=== PATIENT | female | born 1980 | race Caucasian/White ===

== ENCOUNTER 2018-07-19 18:25 | Emergency (ER) | payer OTHER ==
[~2018-07-19] VITALS: Ht 157.5 cm; Wt 57.6 kg
[2018-07-19] MEDS ORDERED: ACETAMINOPHEN 325 MG TABLET PO ONE (19:30)
--- NOTE | 2018-07-19 19:38 | PHYS DOC ---
Past History Past Medical History: No Pertinent History Past Surgical History: No Surgical History Alcohol Use: None Drug Use: None Adult General Chief Complaint Chief Complaint: VAGINAL BLEEDING HPI HPI 38-year-old female presents with vaginal bleeding. The [place] She then has had significant bright red bleeding filling 3 pads. She states that she is still having bleeding. She also has some lower abdominal cramping. She has not had an ultrasound. She denies fever, chills. This is her fourth . Her other 3 were uncomplicated except for preeclampsia. Patient has no other complaints. Review of Systems Review of Systems Constitutional: Denies fever or chills [] Eyes: Denies change in visual acuity, redness, or eye pain [] HENT: Denies nasal congestion or sore throat [] Respiratory: Denies cough or shortness of breath [] Cardiovascular: No additional information not addressed in HPI [] GI: Lower abdominal pain[] : Vaginal bleeding[] Musculoskeletal: Denies back pain or joint pain [] Integument: Denies rash or skin lesions [] Neurologic: Denies headache, focal weakness or sensory changes [] Endocrine: Denies polyuria or polydipsia [] All other systems were reviewed and found to be within normal limits, except as documented in this note. Allergies Allergies Allergies Coded Allergies Type Severity Reaction Last Updated Verified No Known Drug Allergies 07/19/18 No Physical Exam Physical Exam Constitutional: Well developed, well nourished, no acute distress, non-toxic appearance. [] HENT: Normocephalic, atraumatic, bilateral external ears normal, oropharynx moist, no oral exudates, nose normal. [] Eyes: PERRLA, EOMI, conjunctiva normal, no discharge. [] Neck: Normal range of motion, no tenderness, supple, no stridor. [] Cardiovascular:Heart rate regular rhythm, no murmur [] Lungs & Thorax: Bilateral breath sounds clear to auscultation [] Abdomen: Bowel sounds normal, soft, no tenderness, no masses, no pulsatile masses. [] Skin: Warm, dry, no erythema, no rash. [] Back: No tenderness, no CVA tenderness. [] Extremities: No tenderness, no cyanosis, no clubbing, ROM intact, no edema. [] Neurologic: Alert and oriented X 3, normal motor function, normal sensory function, no focal deficits noted. [] Psychologic: Affect normal, judgement normal, mood normal. [] Current Patient Data Vital Signs Vital Signs Date Time Temp Pulse Resp B/P (MAP) Pulse Ox O2 Delivery O2 Flow Rate FiO2 07/19/18 18:25 97.8 91 18 100 Room Air EKG EKG [] Radiology/Procedures Radiology/Procedures [] Impressions: Early OB ultrasound History: Vaginal bleeding in early . Positive test. Comparison: None. Technique: Transabdominal imaging was performed for initial evaluation of the pelvis. Endovaginal imaging was performed to evaluate optimally the lower uterine segment and to increase sensitivity for detection of intrauterine . Findings: Transabdominal imaging: Uterus measures 9.5 cm in length. Endometrial thickness is 13 mm. No intrauterine identified transabdominal imaging. Right ovary measures 2.6 cm in maximum dimension. There is without evidence of torsion. Left ovary is not seen. No adnexal masses are appreciated. Endovaginal imaging: Endometrial thickness is 10 mm. No intrauterine is identified. Right ovary measures 2.4 x 1.6 x 1.9 cm. Right ovary demonstrates a few small follicles. Left ovary measures 2.1 x 1.3 x 2.2 cm and demonstrates a few small follicles. Both ovaries are without evidence of torsion. No adnexal masses are seen. Impression: 1. No intrauterine is identified. No correlative beta hCG levels are available at time of interpretation. 2. Most likely etiology is exceedingly early intrauterine . Although there is no positive ultrasound evidence of such, given the lack of identifiable intrauterine , ectopic cannot be excluded. 3. Recommend serial beta hCG levels and pelvic ultrasound as clinically indicated. Electronically signed by: Tesfaye Gill MD (07/19/2018 8:28 PM) [facility] DICTATED AND SIGNED BY: TESFAYE GILL MD DATE: 07/19/182024 CC: REE RESENDIZ DO; PAPO NORWOOD MD Course & Med Decision Making Course & Med Decision Making Pertinent Labs and Imaging studies reviewed. (See chart for details) Your son is not sure if she her . They're conclusion is likely very early . They could not rule out ectopic however. I am waiting for labs at this time. I will advise the patient that she should have repeat hCG in 2 days and consider repeat ultrasound as directed by her [employer]. The patient hCG is 1229. [place]. Given these facts, the bleeding and the ultrasound results, this is likely spontaneous demise. The patient states that her pain is improved since her arrival. She is stable for discharge at this time. [] Dragon Disclaimer Dragon Disclaimer This electronic medical record was generated, in whole or in part, using a voice recognition dictation system. Departure Departure: Referrals: PAPO NORWOOD MD (PCP) REE RESENDIZ DO Jul 19, 2018 19:38
--- NOTE | 2018-07-19 20:30 | RAD ---
Early OB ultrasound History: Vaginal bleeding in early . Positive test. Comparison: None. Technique: Transabdominal imaging was performed for initial evaluation of the pelvis. Endovaginal imaging was performed to evaluate optimally the lower uterine segment and to increase sensitivity for detection of intrauterine . Findings: Transabdominal imaging: Uterus measures 9.5 cm in length. Endometrial thickness is 13 mm. No intrauterine identified transabdominal imaging. Right ovary measures 2.6 cm in maximum dimension. There is without evidence of torsion. Left ovary is not seen. No adnexal masses are appreciated. Endovaginal imaging: Endometrial thickness is 10 mm. No intrauterine is identified. Right ovary measures 2.4 x 1.6 x 1.9 cm. Right ovary demonstrates a few small follicles. Left ovary measures 2.1 x 1.3 x 2.2 cm and demonstrates a few small follicles. Both ovaries are without evidence of torsion. No adnexal masses are seen. Impression: 1. No intrauterine is identified. No correlative beta hCG levels are available at time of interpretation. 2. Most likely etiology is exceedingly early intrauterine . Although there is no positive ultrasound evidence of such, given the lack of identifiable intrauterine , ectopic cannot be excluded. 3. Recommend serial beta hCG levels and pelvic ultrasound as clinically indicated. Electronically signed by: Gerardo Gill MD (07/19/2018 8:28 PM) [facility]
[2018-07-19 21:00] VITALS: BP 119/85
== END 2018-07-19 21:00 | disposition home or self-care (01) ==
LOC: ER 18:25
DX: O46.91 Antepartum hemorrhage, unspecified, first trimester (principal); R10.30 Lower abdominal pain, unspecified; Z3A.00 Weeks of gestation of pregnancy not specified
CPT/HCPCS: 36415; 76801; 76817; 84702; 99285-25